=== PATIENT | female | born 1950 | race Caucasian/White ===

== ENCOUNTER → 2018-03-17 | Outpatient (CLI) | payer MEDICAID ==
[~2018-03-17] MED LIST: ASPIRIN 81M81 MG/TA2 PO; COZAAR 25MG25 MG/TAB; FAMVIR 500500 MG/TAB PO; INSULIN R (N100 U/ML SC; LOPRESSOR 550 MG/TAB PO; NORVASC 5MG5 MG/TAB PO; RT ADVAIR 228 DISKUS IH; VENTOLIN0.09 MG IH
== END ==
LOC: COL.RAD 13:03
DX: J40 Bronchitis, not specified as acute or chronic (principal)

== ENCOUNTER 2019-01-11 14:43 | Emergency (ER) | payer MEDICAID ==
[~2019-01-11] VITALS: Ht 160 cm; Wt 52.7 kg
[2019-01-11 14:47] VITALS: TEMP 97.2
[2019-01-11 16:02] LABS: BASO % 0.4 % (0.0-2.0); EOS # 0.3 (0.0-0.7); EOS % 3.3 % (0-4.0); GRAN # 4.7 (1.4-6.5); GRAN % 61.9 % (42.2-75.2); HEMATOCRIT 38.1 % (37.0-47.0); HEMOGLOBIN 12.7 g/dl (12.5-16.0); LYMPH # 2.1 (1.2-3.4); LYMPH % 27.2 % (20.0-51.0); MEAN CELL VOLUME 82 fl (80.0-100.0); MEAN CORPUSCULAR HEMOGLOBIN 27 pg (27.0-31.0); MEAN CORPUSCULAR HGB CONC 33 g/dl (33.0-37.0); MEAN PLATELET VOLUME 11.7 fl (7.4-10.4); MONO # 0.5 (0.1-0.6); MONO % 6.9 % (1.7-9.3); PLATELET COUNT 247 K/mm3 (130-400); RED BLOOD COUNT 4.63 M/mm3 (4.10-5.30); REDCELL DISTRIBUTION WIDTH-CV 13.3 % (11.5-14.5)
[2019-01-11 16:11] LABS: ALANINE AMINOTRANSFERASE 7 U/L (9-52); ALBUMIN 4.5 gm/dL (3.5-5.0); ALKALINE PHOSPHATASE 100 U/L (50-136); ANION GAP 9 mmol/L (7-16); AST,SGOT 21 U/L (15-37); BILIRUBIN,TOTAL 0.7 mg/dL (0.0-1.0); BLOOD UREA NITROGEN 11 mg/dL (7-17); CALCIUM 9.4 mg/dL (8.4-10.2); CARBON DIOXIDE 26 mmol/L (22-30); CHLORIDE 101 mmol/L (98-107); CREATININE, serum 0.53 (0.52-1.25); GLUCOSE 306 mg/dL (74-106); POTASSIUM 3.8 mmol/L (3.4-5.0); SODIUM 136 mmol/L (137-145); TOTAL PROTEIN 8.3 gm/dL (6.4-8.2)
[2019-01-11 16:13] LABS: PH 6 (5-8); URINE APPEARANCE Clear; URINE BACTERIA None Seen /hpf; URINE BILIRUBIN Negative (NEGATIVE); URINE BLOOD Negative (NEGATIVE); URINE COLOR Yellow; URINE GLUCOSE 3+ (NEGATIVE); URINE KETONE Negative (NEGATIVE); URINE LEUKOCYTE ESTERASE Trace (NEGATIVE); URINE NITRATE Negative (NEGATIVE); URINE PROTEIN(semi-quant) 1+ (NEGATIVE); URINE UROBILINOGEN Negative (NEGATIVE); URINE WBC 20-50 /hpf
[2019-01-11 16:19] LABS: COLLECTION METHOD CLEAN CATCH
[2019-01-11 16:27] LABS: TROPONIN-I < 0.012 ng/mL (0.000-0.035)
[2019-01-11] MEDS ORDERED: NORVASC 10MG10 MG PO (16:49)
[2019-01-11] MEDS ORDERED: PRINIVIL20 MG PO (16:49)
[2019-01-11 17:15] VITALS: BP 151/77; PULSE 70
== END 2019-01-11 17:15 | disposition home or self-care (01) ==
LOC: COL.ER 14:43
PROVIDERS: Emergency Medicine
DX: E11.65 Type 2 diabetes mellitus with hyperglycemia (principal); I10 Essential (primary) hypertension; J45.909 Unspecified asthma, uncomplicated; E78.5 Hyperlipidemia, unspecified; Z79.51 Long term (current) use of inhaled steroids; Z79.82 Long term (current) use of aspirin; Z79.4 Long term (current) use of insulin

== ENCOUNTER 2019-01-24 00:17 | Emergency (ER) | payer MEDICAID ==
[~2019-01-24] VITALS: Ht 160 cm; Wt 52.7 kg
[~2019-01-24 00:17] MED LIST changes: +NORVASC 10MG10 MG PO; +PRINIVIL20 MG PO
[2019-01-24 00:20] VITALS: TEMP 97
[2019-01-24 00:57] LABS: BASO # 0.1 (0.0-0.2); BASO % 0.5 % (0.0-2.0); EOS # 0.2 (0.0-0.7); EOS % 1.6 % (0-4.0); GRAN # 8.8 (1.4-6.5); GRAN % 72.9 % (42.2-75.2); HEMATOCRIT 37.1 % (37.0-47.0); LYMPH # 2.1 (1.2-3.4); LYMPH % 17.1 % (20.0-51.0); MEAN CELL VOLUME 84 fl (80.0-100.0); MEAN CORPUSCULAR HEMOGLOBIN 27 pg (27.0-31.0); MEAN CORPUSCULAR HGB CONC 32 g/dl (33.0-37.0); MEAN PLATELET VOLUME 10.7 fl (7.4-10.4); MONO # 0.9 (0.1-0.6); MONO % 7.5 % (1.7-9.3); PLATELET COUNT 323 K/mm3 (130-400); REDCELL DISTRIBUTION WIDTH-CV 13.2 % (11.5-14.5)
[2019-01-24 01:03] LABS: ALBUMIN 4.5 gm/dL (3.5-5.0); BILIRUBIN,TOTAL 0.3 mg/dL (0.0-1.0); CALCIUM 9.9 mg/dL (8.4-10.2); CREATININE, serum 0.65 (0.52-1.25); POTASSIUM 3.2 mmol/L (3.4-5.0); TOTAL PROTEIN 8.4 gm/dL (6.4-8.2)
[2019-01-24 02:31] LABS: COLLECTION METHOD CLEAN CATCH
[2019-01-24 02:39] LABS: MUCOUS Present /lpf; PH 5 (5-8); URINE APPEARANCE Clear; URINE BACTERIA Rare /hpf; URINE BILIRUBIN Negative (NEGATIVE); URINE BLOOD Negative (NEGATIVE); URINE COLOR Yellow; URINE GLUCOSE 3+ (NEGATIVE); URINE KETONE Trace (NEGATIVE); URINE LEUKOCYTE ESTERASE 1+ (NEGATIVE); URINE NITRATE Negative (NEGATIVE); URINE PROTEIN(semi-quant) 2+ (NEGATIVE); URINE RBC 0-2 /hpf; URINE UROBILINOGEN Negative (NEGATIVE)
[2019-01-24] MEDS ORDERED: CEFTIN500 MG PO (02:57)
[2019-01-24 03:10] VITALS: BP 158/74; PULSE 75
== END 2019-01-24 03:29 | disposition home or self-care (01) ==
LOC: COL.ER 00:17
PROVIDERS: Emergency Medicine
DX: E16.2 Hypoglycemia, unspecified (principal); N39.0 Urinary tract infection, site not specified; E10.9 Type 1 diabetes mellitus without complications; J45.909 Unspecified asthma, uncomplicated; I10 Essential (primary) hypertension; Z79.84 Long term (current) use of oral hypoglycemic drugs
CPT/HCPCS: A4216; J0696

== ENCOUNTER 2021-06-25 13:45 | Inpatient (IN) | payer MEDICAID ==
[~2021-06-25] VITALS: Ht 160 cm; Wt 53.6 kg
[~2021-06-25 13:45] MED LIST changes: +CEFTIN500 MG PO
[2021-06-25 14:59] LABS: MEAN CELL VOLUME 83 fl (80.0-100.0); MEAN CORPUSCULAR HEMOGLOBIN 26 pg (27-31); MEAN CORPUSCULAR HGB CONC 32 g/dl (33.0-37.0); MEAN PLATELET VOLUME 10.7 fl (7.4-10.4); PLATELET COUNT 540 K/mm3 (130-400); RED BLOOD COUNT 3.81 M/mm3 (4.10-5.30); REDCELL DISTRIBUTION WIDTH-CV 13.3 % (11.5-14.5)
[2021-06-25 15:00] LABS: HEMATOCRIT 31.6 % (37.0-47.0)
[2021-06-25 15:13] LABS: C-REACTIVE PROTEIN 22.72 mg/dL (0.00-0.50); CALCIUM 9.8 mg/dL (8.4-10.2); CREATININE, serum 1.24 mg/dL (0.57-1.11); POTASSIUM 3.6 mmol/L (3.5-4.5)
[2021-06-25 15:33] LABS: BAND 9 % (0-10); EOSINOPHIL 1 % (0-4); LYMPHOCYTE 15 % (20.0-51.0); PLATELET ESTIMATE INCREASED (NORMAL)
[2021-06-25 15:34] LABS: HYPOCHROMIA 2+; NEUTROPHILS 69 % (42.0-75.2)
[2021-06-25] MEDS ORDERED: JANUVIA 100MG100 MG PO (16:08)
[2021-06-25] MEDS ORDERED: GLUCOPHAGE500 MG/TAB PO (16:09)
[2021-06-25 16:50] VITALS: BP 144/58; PULSE 88; TEMP 98.2
--- NOTE | 2021-06-25 16:50 | NUR ---
PATIENT ADMITED INTO ROOM 343 FROM ER WITH NECROTIC LEFT GREAT TOE. PATIENT IS A KNOWN DIABETIC. BS IN ER WAS IN THE 300'S. UNCLEAR HOW LONG THE LEFT GREAT TOE HAS BEEN BLACK AND NECROTIC. TOE IS BLACK WITH SLOUGHING SKIN AND FOUL SMELL. PATIENT REPORTS ONLY SLIGHT FEELING IN LEFT GREAT TOE AND DENIES PAIN. VSS ON TELE. IV FLUIDS INFUSING INTO RIGHT FORARM IV. HEAD TO TOE ASSESSMENT COMPLETE. ORIENTED TO ROOM. CALL LIGHT IN REACH. AT BEDSIDE.
--- NOTE | 2021-06-25 17:35 | NUR ---
WOUND CULTURE OBTAINED AND SENT TO LAB
[2021-06-25] MEDS ORDERED: TOPROL XL 25MG25 MG PO (19:17)
[2021-06-25] MEDS ORDERED: NOVOLOG MIX 70/33 ML SQ (19:20)
[2021-06-25] MEDS ORDERED: PRAVACHOL 20MG20 MG PO (19:21)
[2021-06-25] MEDS ORDERED: PRIL40 PO (19:22)
[2021-06-25] MEDS ORDERED: RT ADVAIR 228 DISKUS IH (19:22)
[2021-06-25] MEDS ORDERED: FLONASEALLERGY NS (19:23)
[2021-06-25] MEDS ORDERED: VENTOLIN0.09 MG IH (19:24)
--- NOTE | 2021-06-25 20:00 | NUR ---
PT IN BED, IS ALERT AND ORIENTED X4. HAS IVF TO RFA INFUSING WITHOUT REDNESS OR SWELLING. IV ANTIBIOTIC CONNECTED AND INFUSING. PT HAS LITE DRSG TO LEFT GREAT TOE, REDNESS TO TOP OF LT FOOT, FOUL ODOR FROM TOE. PT DENIES PAIN.
[2021-06-25 20:20] VITALS: BP 147/53; PULSE 83; TEMP 98.2
[2021-06-25 23:51] VITALS: BP 170/53; PULSE 85; TEMP 99.1
[2021-06-26] VITALS (12 sets, daily range): BP systolic 125–162; BP diastolic 48–108; PULSE 70–89; TEMP 99–102.6
--- NOTE | 2021-06-26 04:16 | NUR ---
PT HAS FEVER 102.6. [employer] SENIOR INFORMATION SECURITY ARCHITECT NOTIFIED, NEW ORDER FOR TYLENOL GIVEN. MEDICATED WITH 650MG PO NOW. ASSISTED TO BATHROOM, VOIDS AND BACK TO BED.
--- NOTE | 2021-06-26 05:26 | NUR ---
Pt pkkm=759.0 orally.
[2021-06-26 05:59] LABS: BASO # 0.1 K/mm3 (0.0-0.2); BASO % 0.3 % (0.0-2.0); EOS % 0.1 % (0.0-4.0); GRAN # 15.2 K/mm3 (1.4-6.5); GRAN % 83.6 % (42.2-75.2); HEMATOCRIT 27.1 % (37.0-47.0); LYMPH # 1.4 K/mm3 (1.2-3.4); LYMPH % 7.9 % (20.0-51.0); MEAN CELL VOLUME 80 fl (80.0-100.0); MEAN CORPUSCULAR HEMOGLOBIN 26 pg (27-31); MEAN CORPUSCULAR HGB CONC 33 g/dl (33.0-37.0); MEAN PLATELET VOLUME 10.8 fl (7.4-10.4); MONO # 1.4 K/mm3 (0.1-0.6); MONO % 7.4 % (1.7-9.3); PLATELET COUNT 442 K/mm3 (130-400); RED BLOOD COUNT 3.41 M/mm3 (4.10-5.30); REDCELL DISTRIBUTION WIDTH-CV 13.2 % (11.5-14.5)
[2021-06-26 06:25] LABS: CALCIUM 8.7 mg/dL (8.4-10.2); CREATININE, serum 0.81 mg/dL (0.57-1.11); POTASSIUM 3.1 mmol/L (3.5-4.5)
--- NOTE | 2021-06-26 08:00 | NUR ---
PATIENT GOING DOWN FOR MRI. OFF FLOOR
--- NOTE | 2021-06-26 09:00 | NUR ---
PATIENT IS ORIENTED BUT DROWSY THIS AM. RESIDENTIAL MORTGAGE UNDERWRITER REPORTED TEMP OF 100.0 AND TYLENOL WAS GIVEN. ALSO NOTED HYPERTENSION, CALLED [facility] TO RESUME HOME MEDS, B/P MEDS GIVEN WITH SIPS. SEE APR. NPO FOR POSSIBLE SURGERY TODAY. AM BS IS 219 FASTING. PATIENT HAS HX OF DM WITH AN A1C OF 10.6. LEFT GREAT TOE IS NECROTIC WITH FOUL SMELL. SOFT GAUZE DRESSING APPLIED. BLOOD & WOUND CULTURES PENDING. NOTED ELEVATED WBC OF 18.1 WHICH IS DOWN FROM 21.8 ON ADMISSION. PATIENT GETTING IV ABX, INFUSING VIA PUMP INTO RIGHT FORARM IV. NOTED +1 LLE PEDAL PULSE AND +2 RLE. SCD'S TO BLE. PATIENT NOTED WEAK, UNSTEADY GATE WITH AMBULATION. HEAD TO TOE ASSESSMENT COMPLETE. NO OTHER NEEDS AT THIS TIME. CALL LIGHT IN REACH.
--- NOTE | 2021-06-26 09:24 | NUR ---
KRUNAL met with the patient to discuss discharge plan. The patient lives alone in the [facility]. She states that her daughter, Shruthi (ph#[phone]), lives nearby. She reports independence with ADLs and has a cane available. The patient's primary care provider is Ladi Mariscal APRN at [facility] and she receives her medications from [facility]. She states no difficulties paying for her meds. The patient confirms that she only has Medicaid. She states that she does not have Medicare and was told she does not qualify for it. The patient does not have a DPOA-HC, but she was interested in obtaining a form. KRUNAL provided. The patient states that she is not and has five living children: Shruthi Sosa, Sebastian Kessler, Zack Sosa, Kain Yang, and Alma Sosa. KRUNAL informed her how her five children are her legal next of kin. The patient verbalized understanding. She states that she plans on talking to her daughter about the DPOA-HC. The patient has left great toe necrosis. She is to tentatively have surgery today and at a minimum, have a left great toe amputation. KRUNAL discussed plans for after surgery and maybe post-acute rehab. The patient is unsure at this time about any discharge plans or if she will need any services. KRUNAL contacted and reviewed the above with the patient's daughter, Shruthi. Shruthi states that her and her siblings work, so they would not be able to be with the patient 13/09, if needed. She states that they are able to take her to any appointments and they would be interested in home health, if needed. KRUNAL informed Shruthi how Medicaid only pays for nursing home home health services. Shruthi verbalized understanding. SW to continue to follow. *Discharge plan: Undetermined at this time. Will await therapy evals after surgery*
--- NOTE | 2021-06-26 12:30 | NUR ---
[facility] CALLED AND WOULD LIKE TO TAKE PATIENT TO SURGERY AROUND [phone] TODAY. CALLED HOSPITALIST, SEE STAT CLEARANCE ORDERS. PATIENT CALLING HER SON.
[2021-06-26 12:46] LABS: COLLECTION METHOD CLEAN CATCH
[2021-06-26 12:52] LABS: PH 5 (5-8); SQUAMOUS EPITHELIAL 0-2 /hpf (0-10); URINE APPEARANCE Clear (CLEAR/HAZY); URINE BACTERIA None Seen /hpf (NONE SEEN); URINE BILIRUBIN Negative (NEGATIVE); URINE BLOOD 1+ (NEGATIVE); URINE COLOR Yellow (YELLOW); URINE GLUCOSE 1+ (NEGATIVE); URINE KETONE 1+ (NEGATIVE); URINE LEUKOCYTE ESTERASE Negative (NEGATIVE); URINE NITRATE Negative (NEGATIVE); URINE PROTEIN(semi-quant) 2+ (NEGATIVE); URINE RBC 0-2 /hpf (0-2); URINE WBC 0-2 /hpf (0-2)
--- NOTE | 2021-06-26 13:15 | NUR ---
HOSPITALIST CALLED AND PATIENT CLEARED FOR SURGERY. PATIENT GOING DOWN TO OR VIA BED. BLANK CONSENT ON CHART, PATIENT TO CONSULT IN SURGICAL PRE-OP HOLDING. PRE-OP FLUIDS INFUSING INTO RIGHT FORARM IV. SON NOW AT BEDSIDE. PATIENT OFF FLOOR.
--- NOTE | 2021-06-26 14:15 | NUR ---
PATIENT BACK IN ROOM POST OP LEFT GREAT TOE AMPUTATION. DRESSING TO LLE GREAT TOE IS CD&I AND ELEVATED ON PILLOW. SCD'S TO BLE. PATIENT DENIES PAIN OR NAUSEA STATING "I FEEL SO MUCH BETTER". VSS. HEAD TO TOE ASSESSMENT WNL. PATIENT RESTING WITH NO NEEDS. CALL LIGHT IN REACH. BED ALARM ON. FAMILY ON THEIR WAY BACK TO HOSPITAL
--- NOTE | 2021-06-26 19:54 | NUR ---
TX GIVEN VIA MOUTHPIECE, TOLERATED WELL.
--- NOTE | 2021-06-26 20:00 | NUR ---
PT IN BED, IS DROWSY, BED ALARM ON FOR SAFETY. HAS IV TO RFA WITH FLUIDS INFUSING WITHOUT REDNESS OR SWELLING. LEFT FOOT ELEVATED ON PILLOW, DRSG D/I, REPORTS NUMBNESS/TINGLING OF LEFT EXPOSED TOES. WEARING OXYGEN AT 2L/NC. CALL LIGHT WITHIN REACH.
--- NOTE | 2021-06-26 21:01 | NUR ---
PT WITH EMESIS, APPROX 50CC REARDON, MEDICATED WITH ZOFRAN 4MG IVP AT THIS TIME.
--- NOTE | 2021-06-26 23:02 | NUR ---
PT HAD VOIDED IN BASIN AT BEDSIDE, DID NOT REMEMBER HOW TO CALL FOR THE NURSE. LINENS CHANGED. MILD NAUSEA REMAINS.
[2021-06-27 03:39] VITALS: BP 154/59; PULSE 86; TEMP 97.9
--- NOTE | 2021-06-27 04:08 | NUR ---
PT MEDICATED FOR LEFT FOOT DISCOMFORT WITH OXYCODONE 5MG PO. REPORTS NAUSEA WITH MOVEMENT, MEDICATE WITH ZOFRAN AT THIS TIME WELL.
[2021-06-27 05:47] LABS: CALCIUM 8.2 mg/dL (8.4-10.2); CREATININE, serum 0.72 mg/dL (0.57-1.11)
[2021-06-27 05:50] LABS: POTASSIUM 2.5 mmol/L (3.5-4.5)
--- NOTE | 2021-06-27 05:53 | NUR ---
REPORTED POTASSIUM LEVEL 2.5 TO SAVANNAH NICKERSON
--- NOTE | 2021-06-27 06:20 | NUR ---
PT REPORTS GOOD RELIEF OF DISCOMFORT WITH OXYCODONE.
[2021-06-27 06:27] LABS: MEAN CELL VOLUME 79 fl (80.0-100.0); MEAN CORPUSCULAR HGB CONC 33 g/dl (33.0-37.0); PLATELET COUNT 414 K/mm3 (130-400); RED BLOOD COUNT 3.09 M/mm3 (4.10-5.30); REDCELL DISTRIBUTION WIDTH-CV 13.2 % (11.5-14.5)
[2021-06-27 06:46] LABS: HEMATOCRIT 24.5 % (37.0-47.0); HEMOGLOBIN 8.1 g/dl (12.5-16.0); MEAN CORPUSCULAR HEMOGLOBIN 26 pg (27-31)
[2021-06-27 07:11] LABS: BAND 2 % (0-10); LYMPHOCYTE 11 % (20.0-51.0); NEUTROPHILS 82 % (42.0-75.2); PLATELET ESTIMATE INCREASED (NORMAL)
[2021-06-27 08:00] VITALS: BP 146/51; PULSE 78; TEMP 98
--- NOTE | 2021-06-27 08:44 | NUR ---
PATIENT ALERT AND ORIENTED X3. SITTING UP IN BED. POTASSIUM BEING REPLACED THIS MORNING. DRESSING TO LEFT TOE DRY AND INTACT. DRESSING TO STAY IN PLACE UNTIL SHE GOES TO CLINIC. BLOOD SUGARS ACHS. IV FLUIDS RUNNING AT 100/HR.
--- NOTE | 2021-06-27 10:14 | NUR ---
PATIENT HAS DECLINED THERAPY TWICE THIS MORNING AND WOULD LIKE TO WAIT TILL TOMORROW TO DO HER EVALUATION. PT SPOKE TO THIS NURSE ABOUT HOLDING OFF ONE MORE DAY.
[2021-06-27 12:00] VITALS: BP 133/54; PULSE 75; TEMP 97.8
[2021-06-27 15:45] VITALS: BP 119/48; PULSE 73; TEMP 98
[2021-06-27 19:53] VITALS: BP 132/53; PULSE 71; TEMP 97.7
--- NOTE | 2021-06-27 21:12 | NUR ---
PT STATED SHE DID NOT WANT TO TAKE TX AT THIS TIME.
[2021-06-27 23:38] VITALS: BP 150/52; PULSE 75; TEMP 98
[2021-06-28 03:18] VITALS: BP 145/52; PULSE 76; TEMP 98.2
--- NOTE | 2021-06-28 05:18 | NUR ---
ASSUMED CARE OF PATIENT AFTER RECEIVING BEDSIDE REPORT. ASSESSMENT COMPLETED, VSS. NO QUESTIONS OR CONCERNS AT THIS TIME. PIV PLACED RIGHT FA, 2 ATTEMPTS, PATIENT TOLERATED WELL. NO ACUTE EVENTS OVERNIGHT. BEDSIDE REPORT TO BE GIVEN TO ONCOMING SHIFT
[2021-06-28 06:02] LABS: BASO # 0.1 K/mm3 (0.0-0.2); BASO % 0.2 % (0.0-2.0); EOS % 0.2 % (0.0-4.0); GRAN # 17.8 K/mm3 (1.4-6.5); GRAN % 83.1 % (42.2-75.2); LYMPH % 9.5 % (20.0-51.0); MEAN CELL VOLUME 81 fl (80.0-100.0); MEAN CORPUSCULAR HGB CONC 32 g/dl (33.0-37.0); MEAN PLATELET VOLUME 10.4 fl (7.4-10.4); MONO # 1.3 K/mm3 (0.1-0.6); PLATELET COUNT 422 K/mm3 (130-400); RED BLOOD COUNT 3.43 M/mm3 (4.10-5.30); REDCELL DISTRIBUTION WIDTH-CV 13.4 % (11.5-14.5)
[2021-06-28 06:05] LABS: HEMATOCRIT 27.9 % (37.0-47.0); MEAN CORPUSCULAR HEMOGLOBIN 26 pg (27-31)
[2021-06-28 06:36] LABS: CALCIUM 8.5 mg/dL (8.4-10.2); CREATININE, serum 0.7 mg/dL (0.57-1.11)
[2021-06-28 06:38] LABS: POTASSIUM 2.9 mmol/L (3.5-4.5)
[2021-06-28 07:16] VITALS: BP 158/61; PULSE 83; TEMP 97.8
--- NOTE | 2021-06-28 09:01 | NUR ---
PATIENT ALERT AND ORIENTED X4. IV TO RIGHT FOREARM. PATIENT PAIN IS BETTER. ATE BREAKFAST THIS MORNING.
[2021-06-28 11:58] VITALS: BP 138/62; PULSE 80; TEMP 97.6
--- NOTE | 2021-06-28 14:24 | NUR ---
RA SPO2 AT REST IN BED 82%. PLACED ON 1 LPM NC 90%. RN NOTIFIED
[2021-06-28 15:04] VITALS: BP 135/59; PULSE 92; TEMP 98.6
[2021-06-28 20:36] VITALS: BP 125/59; PULSE 79; TEMP 98
--- NOTE | 2021-06-28 20:47 | NUR ---
PT IN BED, ASSISTED TO BATHROOM TO VOID AND HAVE STOOL. NOTED SMALL SOFT LOOSE STOOL, BACK TO BED. REPORTS PAIN TO RT SIDE AND BURNING TO LEFT FOOT. HS MEDS GIVEN INCLUDING OXYCODONE FOR PAIN. INT TO RFA RED AND TENDER TO FLUSH. DC'D AT THIS TIME.
--- NOTE | 2021-06-28 20:55 | NUR ---
NEW INT STARTED TO LFA, #22 INSYTE ON FIRST ATTEMPT.
--- NOTE | 2021-06-28 23:00 | NUR ---
PT POTASSIUM 3.3 AFTER REPLACEMENT TODAY. REORDERED POTASSIUM, FIRST DOSE OF 3 GIVEN AT THIS TIME.
[2021-06-28 23:25] VITALS: BP 141/52; PULSE 79; TEMP 98.4
--- NOTE | 2021-06-29 03:27 | NUR ---
PT REPORTS RT SIDE PAIN. MEDICATED WITH OXYCODONE 5MG PO AND LAST DOSE OF POTASSIUM REPLACEMENT PO.
[2021-06-29 03:31] VITALS: BP 137/56; PULSE 78; TEMP 98.4
[2021-06-29 07:18] LABS: MEAN CELL VOLUME 82 fl (80.0-100.0); MEAN CORPUSCULAR HGB CONC 32 g/dl (33.0-37.0); MEAN PLATELET VOLUME 10.2 fl (7.4-10.4); RED BLOOD COUNT 3.26 M/mm3 (4.10-5.30); REDCELL DISTRIBUTION WIDTH-CV 13.8 % (11.5-14.5)
[2021-06-29 07:23] LABS: HEMATOCRIT 26.6 % (37.0-47.0); HEMOGLOBIN 8.6 g/dl (12.5-16.0); MEAN CORPUSCULAR HEMOGLOBIN 26 pg (27-31)
[2021-06-29 07:24] LABS: PLATELET COUNT 526 K/mm3 (130-400)
[2021-06-29 07:34] LABS: CALCIUM 8.5 mg/dL (8.4-10.2); CREATININE, serum 0.7 mg/dL (0.57-1.11); MAGNESIUM 1.9 mg/dL (1.6-2.6); POTASSIUM 3.8 mmol/L (3.5-4.5)
[2021-06-29 07:51] VITALS: BP 121/98; PULSE 77; TEMP 98.2
[2021-06-29 08:01] LABS: BAND 5 % (0-10); BASOPHIL 1 % (0-2); EOSINOPHIL 1 % (0-4); HYPOCHROMIA 1+; LYMPHOCYTE 10 % (20.0-51.0); PLATELET ESTIMATE INCREASED (NORMAL)
[2021-06-29 08:03] LABS: NEUTROPHILS 77 % (42.0-75.2)
--- NOTE | 2021-06-29 08:49 | NUR ---
Pt doing okay this morning. She gets up to the bathroom with just standby assist and walker. Pt does have some pain complaints, PRN pain medication given. Pt currently eating breakfast. She did refuse insulin due to lower blood sugar. Will continue to monitor. Gave pt walking shoe to assist with walking. Plan to go home with home health
[2021-06-29] MEDS ORDERED: TYLENOL 325MG325 MG PO (08:54)
[2021-06-29] MEDS ORDERED: FLAGYL500 MG PO (08:54)
[2021-06-29] MEDS ORDERED: ASPI325T6 PO (08:55)
[2021-06-29] MEDS ORDERED: ROXICODONE 55 MG/TAB PO (08:55)
--- NOTE | 2021-06-29 10:59 | NUR ---
environmental services worker notified that the patient is ready for discharge. Per patients RN, the patient has been up and independent in room. IPR director notified me that the patient does not qualify due to independence in room. SW met with patient to discuss going home with HH services. Patients daughter, grandson and ex daughter in law in room at this time. Patient verbalizes that she feels comfortable with discharge plan of going home today with HH. Patient is provided the [employer] list of HH agencies and patient chose [facility]. Clinical referral faxed to [facility] and notified of patients discharge today. Patient verbalizes that she does not have a walker at home and family feels as if this is something the patient should have. Discussed both [facility] and [place] [facility] for DME. Family chose [facility] so they could pick the walker up on their way home. Spoke with Stephen at [facility] to notify him that the order was coming and that they will pick it up on their way home. Discharge plan: Home with [facility]. Walker ordered from [facility]
--- NOTE | 2021-06-29 11:12 | NUR ---
Reviewed discharge instructions with pt and several family members present in the room. Multiple family members asking questions. Daughter in law is a FISHING TACKLE REPAIRER. INT removed from left forearm. Discussed new medications as well as home health and follow up appointments.
--- NOTE | 2021-06-29 11:27 | NUR ---
Pt escorted out at this time
--- NOTE | 2021-06-30 11:29 | NUR ---
[employer] was contacted by Ladi at [facility] who advised they cannot accept patient at this time as Medicaid does not cover PT/OT and they do not have nursing coverage at this time. SW contacted patient to discuss outpatient PT/OT and patient is agreeable to this. SW also contacted patient's daughter, Shruthi and provided update. Shruthi is in agreement with plan for outpatient PT/OT. [facility] and scheduled appointment for 07/03 (OT 1430, PT 1530). KRUNAL also faxed referral with orders. SW contacted both patient and patient's daughter to provide appointment date, time, location, and contact information.
== END 2021-06-29 11:31 | disposition home health service (06) | DRG 854 ==
LOC: COL.ER 13:45 → SURG 15:20
PROVIDERS: Emergency Medicine; Internal Medicine; Orthopaedic Surgery Sports Medicine; Physician Assistant; ADMIT Student in an Organized Health Care Education/Training Program
PROC: 0Y6Q0Z0 Detachment at Left 1st Toe, Complete, Open Approach (ICD-10-PCS; principal; 2021-06-26 13:30)
DX: A41.9 Sepsis, unspecified organism (principal); N17.9 Acute kidney failure, unspecified; E87.2 Acidosis; E11.52 Type 2 diabetes mellitus with diabetic peripheral angiopathy with gangrene; I96 Gangrene, not elsewhere classified; M86.9 Osteomyelitis, unspecified; E11.69 Type 2 diabetes mellitus with other specified complication; L03.032 Cellulitis of left toe; J44.9 Chronic obstructive pulmonary disease, unspecified; E83.42 Hypomagnesemia; E87.6 Hypokalemia; K21.9 Gastro-esophageal reflux disease without esophagitis; E11.65 Type 2 diabetes mellitus with hyperglycemia; I10 Essential (primary) hypertension; D75.839 Thrombocytosis, unspecified; D64.9 Anemia, unspecified; E78.5 Hyperlipidemia, unspecified; Z79.4 Long term (current) use of insulin; Z79.82 Long term (current) use of aspirin
CPT/HCPCS: 99222-AI; 99232-AI; 99233-AI; 99239; A9284; A9575; J0690; J1815; J2250; J2405; J2543; J2704; J3010; J3370; J3475; J7120

== ENCOUNTER 2021-07-02 14:54 | Inpatient (IN) | payer MEDICAID ==
[~2021-07-02] VITALS: Ht 160 cm; Wt 53.8 kg
[~2021-07-02 14:54] MED LIST changes: +ASPI325T6 PO; +FLAGYL500 MG PO; +FLONASEALLERGY NS; +GLUCOPHAGE500 MG/TAB PO; +JANUVIA 100MG100 MG PO; +NOVOLOG MIX 70/33 ML SQ; +PRAVACHOL 20MG20 MG PO; +PRIL40 PO; +ROXICODONE 55 MG/TAB PO; +TOPROL XL 25MG25 MG PO; +TYLENOL 325MG325 MG PO
[2021-07-02 15:52] LABS: MEAN CELL VOLUME 84 fl (80.0-100.0); MEAN CORPUSCULAR HGB CONC 32 g/dl (33.0-37.0); MEAN PLATELET VOLUME 9.4 fl (7.4-10.4); PLATELET COUNT 629 K/mm3 (130-400); RED BLOOD COUNT 3.22 M/mm3 (4.10-5.30); REDCELL DISTRIBUTION WIDTH-CV 14.1 % (11.5-14.5)
[2021-07-02 15:54] LABS: HEMOGLOBIN 8.5 g/dl (12.5-16.0); MEAN CORPUSCULAR HEMOGLOBIN 26 pg (27-31)
[2021-07-02 16:11] LABS: ALBUMIN 2.3 gm/dL (3.4-4.8); BILIRUBIN,TOTAL 0.3 mg/dL (0.2-1.2); C-REACTIVE PROTEIN 16.44 mg/dL (0.00-0.50); CALCIUM 8.9 mg/dL (8.4-10.2); CREATININE, serum 0.97 mg/dL (0.57-1.11); POTASSIUM 4.3 mmol/L (3.5-4.5); TOTAL PROTEIN 8.2 gm/dL (6.2-8.1)
[2021-07-02 16:24] LABS: BAND 8 % (0-10); EOSINOPHIL 1 % (0-4); LYMPHOCYTE 5 % (20.0-51.0); METAMYELOCYTE 1 % (0-0); NEUTROPHILS 76 % (42.0-75.2)
[2021-07-02 16:25] LABS: HYPOCHROMIA 2+; PLATELET ESTIMATE INCREASED (NORMAL)
[2021-07-02 17:15] VITALS: BP 130/57; PULSE 83; TEMP 99.1
[2021-07-02 19:29] VITALS: BP 123/59; PULSE 80; TEMP 98.9
--- NOTE | 2021-07-02 22:18 | NUR ---
Received report from day shift. Patient here for fever, malaise and left below the knee amputation. VSS. Consent signed. Assessment performed. PM meds administered. Patient reports pain 5/10 but denies need for medication. Patient instructed on NPO midnight status. Call light within reach.
[2021-07-02 23:38] VITALS: BP 119/56; PULSE 72; TEMP 98.7
[2021-07-03] VITALS (11 sets, daily range): BP systolic 128–141; BP diastolic 53–84; PULSE 73–95; TEMP 97.8–99.4
[2021-07-03 07:05] LABS: HEMATOCRIT 26.2 % (37.0-47.0); HEMOGLOBIN 8.2 g/dl (12.5-16.0); MEAN CELL VOLUME 83 fl (80.0-100.0); MEAN CORPUSCULAR HEMOGLOBIN 26 pg (27-31); MEAN CORPUSCULAR HGB CONC 31 g/dl (33.0-37.0); MEAN PLATELET VOLUME 10.1 fl (7.4-10.4); PLATELET COUNT 531 K/mm3 (130-400); RED BLOOD COUNT 3.14 M/mm3 (4.10-5.30); REDCELL DISTRIBUTION WIDTH-CV 14.4 % (11.5-14.5)
[2021-07-03 07:10] LABS: CALCIUM 8.5 mg/dL (8.4-10.2); CREATININE, serum 0.82 mg/dL (0.57-1.11); MAGNESIUM 1.9 mg/dL (1.6-2.6); POTASSIUM 4.2 mmol/L (3.5-4.5)
[2021-07-03 07:21] LABS: EOSINOPHIL 2 % (0-4); LYMPHOCYTE 16 % (20.0-51.0); NEUTROPHILS 72 % (42.0-75.2)
[2021-07-03 07:22] LABS: HYPOCHROMIA 1+; PLATELET ESTIMATE INCREASED (NORMAL)
--- NOTE | 2021-07-03 09:32 | NUR ---
Initial visit; Patient, her daughter and thanked Roving Frame Tender for looking in on her, offering prayer and God's blessings. Family appeard relieved and hopeful Bailey was about to receive help for her foot which is severely damaged.
--- NOTE | 2021-07-03 10:40 | NUR ---
Resource Efficiency Manager met with patient, patient's daughter Shruthi, and patient's life partner, Shannon (ph#[phone]) to discuss discharge planning. Patient lives alone in [place] at the [facility] and remarked that Shannon lives in the apartment next door to her. Patient uses [facility] for medications and sees [facility] for primary care. Patient is a readmit and was here 06/25/21-06/29/21. Patient to have BKA today. Patient was discharged with HH orders, however [facility] was unable to accept referral for therapy or nursing. Patient states she went to her appointment at [facility] and was sent to the ED from there. Patient and family are frustrated with lack of follow up from previous hospital stay. SW inquired about Medicare coverage as patient only has Medicaid. Patient and family are unsure why patient would not qualify for Medicare. KRUNAL Khan consulted Financial Counseling. Patient is interested in IPR and referral was given to Margaux, IPR Director. SW also discussed [facility] as another option and patient's LP stated he would prefer IPR. KRUNAL discussed Advance Directives with patient who would like to designate her daughter, Shruthi as DPOA-HC. Patient verbalized understanding of DPOA-HC and stated she wants Shannon to be designated as alternate. KRUNAL assisted patient in completing the form then KRUNAL and KRUNAL Khan signed as witnesses. KRUNAL provided original and copies to patient, then placed copy in patient's chart. KRUNAL contacted [facility] and faxed referral to inquire if they would accept Medicaid for HH nursing as there are limited HH options for patients with only Medicaid. KRUNAL also left a message for Cyndee with [facility]. Discharge Plan: IPR Screen. Referral also given to [facility] and [facility].
--- NOTE | 2021-07-03 10:58 | NUR ---
PT TO SURGERY AT THIS TIME.
--- NOTE | 2021-07-03 11:01 | NUR ---
PT TO HAVE BKA OF LLE. CONSENT ON CHART. PT TO SURGERY PER BED WITH
--- NOTE | 2021-07-03 13:55 | NUR ---
PT TO ROOM 342 PER BED WITH REPORT FROM WIL ROLAND PACU @[id number]. PT IS A/O X3 LUNGS CTA, BOWEL SOUNDS PRESENT. OCCLUSIVE DRESSING CDI IN KNEE IMMOBILIZER TO LEFT LE OF BKA.
[2021-07-04] VITALS: BP 110/66; PULSE 84; TEMP 99.2
--- NOTE | 2021-07-04 03:30 | NUR ---
PT had not voided since surgery, bladder scan done showing 640 cc, helped pt use bedpan, voided 300cc.
[2021-07-04 04:00] VITALS: BP 149/61; PULSE 85; TEMP 99.3
[2021-07-04 06:27] LABS: MEAN CELL VOLUME 81 fl (80.0-100.0); MEAN CORPUSCULAR HGB CONC 32 g/dl (33.0-37.0); MEAN PLATELET VOLUME 9.8 fl (7.4-10.4); PLATELET COUNT 539 K/mm3 (130-400); RED BLOOD COUNT 2.74 M/mm3 (4.10-5.30); REDCELL DISTRIBUTION WIDTH-CV 14.6 % (11.5-14.5)
[2021-07-04 06:28] LABS: HEMOGLOBIN 7.1 g/dl (12.5-16.0); MEAN CORPUSCULAR HEMOGLOBIN 26 pg (27-31)
[2021-07-04 06:29] LABS: HEMATOCRIT 22.2 % (37.0-47.0)
--- NOTE | 2021-07-04 07:09 | NUR ---
pt voided several more times using bedpan,IVF infusing per PIV @75cc/hr until po intake improves. no N/V but has reported increased pain throughout this shift, see emar for meds given. left leg elevated on 2 pillows, pt wanting to try ice pack to surgical site this am. temp 99.3 otherwise VSS, received SSI @ HS.
[2021-07-04 07:17] LABS: CALCIUM 8.1 mg/dL (8.4-10.2); CREATININE, serum 0.74 mg/dL (0.57-1.11); POTASSIUM 3.9 mmol/L (3.5-4.5)
[2021-07-04 07:38] LABS: BAND 8 % (0-10); LYMPHOCYTE 5 % (20.0-51.0); NEUTROPHILS 77 % (42.0-75.2); PLATELET ESTIMATE INCREASED (NORMAL)
[2021-07-04 07:45] VITALS: BP 165/68; PULSE 82; TEMP 98.5
--- NOTE | 2021-07-04 11:00 | NUR ---
PT HAS BEEN UP OUT OF BED WITH 2 ASSIST, GAIT BELT ET A WALKER @ THIS TIME. PT TOLERATED WELL WITH QUEING. PT WAS TRANSFERRED FROM BED TO BEDSIDE COMMODE ET THEN TO THE RECLINER CHAIR. LEFT BKA STUMP ELEVATED ON PILLOWS.
--- NOTE | 2021-07-04 11:27 | NUR ---
PT HAS BEEN TAKEN TO SURGERY. PRE-OP FLUIDS INFUSING INTO PERIPHERAL IV. DONNELLY CATHETER DRAINING DEPENDENTLY. PT HAS BEEN GIVEN A BED BATH, GOWN HAS BEEN CHANGED ET CATHETER CARE COMPLETED.
[2021-07-04 12:02] VITALS: BP 134/56; PULSE 80; TEMP 98.5
[2021-07-04 16:08] VITALS: BP 148/59; PULSE 81; TEMP 98.7
[2021-07-04 20:00] VITALS: BP 151/71; PULSE 85; TEMP 98.7
[2021-07-05 00:14] VITALS: BP 144/65; PULSE 77; TEMP 98.5
[2021-07-05 04:00] VITALS: BP 161/61; PULSE 81; TEMP 98.1
--- NOTE | 2021-07-05 06:03 | NUR ---
pt on RA, pain controlled with po meds, up to BSC with assist of 2, SSI given @HS, pt and spouse concerned about high BGMs yesterday, spouse helped pick out better options on menu for meals today. educated on how surgery/stress can affect diabetes as well as food, LL elevated on pillows, dressing to stump CDI.
[2021-07-05 06:18] LABS: MEAN CELL VOLUME 83 fl (80.0-100.0); MEAN CORPUSCULAR HGB CONC 32 g/dl (33.0-37.0); MEAN PLATELET VOLUME 9.8 fl (7.4-10.4); PLATELET COUNT 603 K/mm3 (130-400); REDCELL DISTRIBUTION WIDTH-CV 14.5 % (11.5-14.5)
[2021-07-05 06:31] LABS: HEMATOCRIT 23.2 % (37.0-47.0); HEMOGLOBIN 7.3 g/dl (12.5-16.0); MEAN CORPUSCULAR HEMOGLOBIN 26 pg (27-31)
[2021-07-05 06:33] LABS: CALCIUM 8.5 mg/dL (8.4-10.2); CREATININE, serum 0.64 mg/dL (0.57-1.11); POTASSIUM 3.4 mmol/L (3.5-4.5)
[2021-07-05 07:16] LABS: BAND 1 % (0-10); HYPOCHROMIA 1+; LYMPHOCYTE 10 % (20.0-51.0); NEUTROPHILS 79 % (42.0-75.2); PLATELET ESTIMATE INCREASED (NORMAL)
[2021-07-05 07:51] VITALS: BP 167/63; PULSE 82; TEMP 98.2
[2021-07-05 12:00] VITALS: BP 155/67; PULSE 84; TEMP 97.9
[2021-07-05 15:59] VITALS: BP 144/63; PULSE 80; TEMP 98.4
--- NOTE | 2021-07-05 17:41 | NUR ---
PT IS IN BED, EATING DINNER WITH HOB ELEVATED, SPOUSE IS @ BEDSIDE. PT WAS UP IN THE CHAIR FOR LUNCH ET A FEW HOURS BEFORE. PT WAS ABLE TO SLEEP FOR AWHILE AFTER DINNER. PT IS MORE TALKATIVE ET ANIMATED TODAY, STATES THAT SHE IS HAVING LESS PAIN, IS INTERMITTENT IN LEFT BKA SITE. PT HAS BEEN UP TO BSC WITH 1 ASSIST, GAIT BELT ET WALKER NUMEROUS TIMES TO URINATE. RESPIRATIONS REMAIN UNLABORED ON RA. DRESSING, BRACE ET KENNY WRAP TO LEFT STUMP CDI. PT DENIES NEEDS. CALL LIGHT WITHIN REACH.
[2021-07-05 20:09] VITALS: BP 147/57; PULSE 84; TEMP 98.1
[2021-07-06] VITALS (11 sets, daily range): BP systolic 130–169; BP diastolic 52–78; PULSE 75–88; TEMP 98–99.1
[2021-07-06 06:40] LABS: MEAN CELL VOLUME 83 fl (80.0-100.0); MEAN CORPUSCULAR HGB CONC 31 g/dl (33.0-37.0); MEAN PLATELET VOLUME 9.6 fl (7.4-10.4); PLATELET COUNT 627 K/mm3 (130-400); RED BLOOD COUNT 2.65 M/mm3 (4.10-5.30); REDCELL DISTRIBUTION WIDTH-CV 14.7 % (11.5-14.5)
[2021-07-06 06:52] LABS: HEMATOCRIT 22.1 % (37.0-47.0); MEAN CORPUSCULAR HEMOGLOBIN 26 pg (27-31)
[2021-07-06 06:53] LABS: HEMOGLOBIN 6.9 g/dl (12.5-16.0)
[2021-07-06 06:57] LABS: CALCIUM 8.6 mg/dL (8.4-10.2); CREATININE, serum 0.75 mg/dL (0.57-1.11); POTASSIUM 3.4 mmol/L (3.5-4.5)
[2021-07-06 07:41] LABS: BAND 3 % (0-10); EOSINOPHIL 1 % (0-4); LYMPHOCYTE 10 % (20.0-51.0); METAMYELOCYTE 1 % (0-0); NEUTROPHILS 82 % (42.0-75.2)
[2021-07-06 07:42] LABS: HYPOCHROMIA 1+; PLATELET ESTIMATE INCREASED (NORMAL)
[2021-07-06 09:44] LABS: RETIC # 0.09 M/mm3 (0.02-0.16); RETIC % 3.2 % (0.5-3.52)
--- NOTE | 2021-07-06 12:55 | NUR ---
IPR still following patient. Cannot accept today as the patients hgb low and needing a unit of blood.
[2021-07-06 17:20] LABS: HEMATOCRIT 25.6 % (37.0-47.0); HEMOGLOBIN 8.4 g/dl (12.5-16.0)
[2021-07-07 00:08] VITALS: BP 157/63; PULSE 80; TEMP 97.8
[2021-07-07 03:39] VITALS: BP 169/70; PULSE 76; TEMP 98.3
--- NOTE | 2021-07-07 05:17 | NUR ---
Pt had an uneventful evening. Took oral medication without difficulty. Minimal compaints of pain were expressed. Pt able to ambulate/hop to bedside commode with 1Xassist by the PCT. Pt has had no other complaints at this time, all needs met. Call light within reach.
[2021-07-07 06:30] LABS: BASO # 0.1 K/mm3 (0.0-0.2); BASO % 0.5 % (0.0-2.0); EOS # 0.2 K/mm3 (0.0-0.7); EOS % 1.6 % (0.0-4.0); GRAN # 9.1 K/mm3 (1.4-6.5); GRAN % 71.1 % (42.2-75.2); LYMPH # 2.3 K/mm3 (1.2-3.4); LYMPH % 18.1 % (20.0-51.0); MEAN CELL VOLUME 83 fl (80.0-100.0); MEAN CORPUSCULAR HGB CONC 32 g/dl (33.0-37.0); MEAN PLATELET VOLUME 9.2 fl (7.4-10.4); MONO % 7.7 % (1.7-9.3); PLATELET COUNT 666 K/mm3 (130-400); RED BLOOD COUNT 3.32 M/mm3 (4.10-5.30); REDCELL DISTRIBUTION WIDTH-CV 14.8 % (11.5-14.5)
[2021-07-07 06:33] LABS: CALCIUM 9.1 mg/dL (8.4-10.2); CREATININE, serum 0.67 mg/dL (0.57-1.11); POTASSIUM 3.9 mmol/L (3.5-4.5)
[2021-07-07 06:36] LABS: HEMATOCRIT 27.5 % (37.0-47.0); HEMOGLOBIN 8.9 g/dl (12.5-16.0); MEAN CORPUSCULAR HEMOGLOBIN 27 pg (27-31)
[2021-07-07 07:35] VITALS: BP 170/77; PULSE 83; TEMP 98.1
--- NOTE | 2021-07-07 09:04 | NUR ---
PATIENT ALERT AND ORIENTED X3. PRN ROXICODONE GIVEN FOR PAIN. IV TO LEFT FOREARM. NO NEW CONCERNS. PATIENT ON ACHS BLOOD SUGARS.
[2021-07-07 12:00] VITALS: BP 174/70; PULSE 87; TEMP 98.5
[2021-07-07] MEDS ORDERED: NOVOLOG 100U100 U/M1 SQ ×2 (14:57→15:07)
[2021-07-07] MEDS ORDERED: LEVEMIR FLEX100 U/ML SQ (14:57)
== END 2021-07-07 15:32 | DRG 240 ==
LOC: COL.ER 14:54 → SURG 15:48
PROVIDERS: Emergency Medicine; Orthopaedic Surgery Sports Medicine; Physician Assistant; Student in an Organized Health Care Education/Training Program; ADMIT Internal Medicine
PROC: 0Y6J0Z3 Detachment at Left Lower Leg, Low, Open Approach (ICD-10-PCS; principal; 2021-07-03 12:00)
DX: E11.52 Type 2 diabetes mellitus with diabetic peripheral angiopathy with gangrene (principal); I96 Gangrene, not elsewhere classified; L03.116 Cellulitis of left lower limb; I10 Essential (primary) hypertension; J44.9 Chronic obstructive pulmonary disease, unspecified; K21.9 Gastro-esophageal reflux disease without esophagitis; E87.6 Hypokalemia; D64.9 Anemia, unspecified; D75.839 Thrombocytosis, unspecified; E78.5 Hyperlipidemia, unspecified; Z79.02 Long term (current) use of antithrombotics/antiplatelets; Z79.4 Long term (current) use of insulin; Z79.891 Long term (current) use of opiate analgesic; Z79.82 Long term (current) use of aspirin; Z20.822 Contact with and (suspected) exposure to COVID-19; Z23 Encounter for immunization
CPT/HCPCS: 99223-AI; 99232-AI; 99233-AI; A9284; J0690; J1170; J1815; J2250; J2543; J2704; J2795; J3010; J3370; J7030; J7050; L1830; P9016

== ENCOUNTER 2021-07-07 15:03 | Inpatient (IN) | payer MEDICAID ==
[~2021-07-07] VITALS: Ht 162.6 cm; Wt 49.8 kg
[~2021-07-07 15:03] MED LIST changes: +LEVEMIR FLEX100 U/ML SQ; +NOVOLOG 100U100 U/M1 SQ
[2021-07-07] MEDS ORDERED: NOVOLOG 100U100 U/M1 SQ (15:07)
[2021-07-07 15:57] VITALS: BP 149/75; PULSE 81; TEMP 98.5
--- NOTE | 2021-07-07 18:18 | NUR ---
PATIENT ADMITTED TO INPATIENT REHAB THIS AFTERNOON. WORKED WITH THERAPY THIS MORNING. WILL START THERAPIES TOMORROW MORNING.
--- NOTE | 2021-07-08 03:26 | NUR ---
Pt transfered to [facility] 07/07/21. Pt has had an uneventful shift and has been resting quietly in bed thus far. Pt has no complaints of pain/discomfort. Tolerating PO intake well. All other needs met at this time, call light within reach.
[2021-07-08 05:12] VITALS: BP 158/76; PULSE 80; TEMP 98.2
--- NOTE | 2021-07-08 07:03 | NUR ---
Shift report received from rn night RN. Pt. awake and resting supine in bed. She denies pain or discomfort at this time. Call light is within her reach
--- NOTE | 2021-07-08 09:24 | NUR ---
Pt. assisted to bathroom using SBA, gait belt, walker. She denies pain or discomfort at this time. Voided without pain or difficulty. is at bedside. Pt. assisted back to bed. Left stump elevated on pillow. Call light is within her reach
--- NOTE | 2021-07-08 13:33 | NUR ---
Pt resting in recliner with BLE elevated on footrest. She denies pain or discomfort at this time. OT in room to escort pt to PT room
[2021-07-08 16:42] VITALS: BP 152/63; PULSE 91; TEMP 98.3
--- NOTE | 2021-07-08 20:00 | NUR ---
PT reports having diarrhea today, asking for immodium, called Amalia Celis APRN, wants stool specimen for GI panel collected before she'll order immodium, stool specimen collected and sent to lab @193
--- NOTE | 2021-07-09 06:04 | NUR ---
no further diarrhea reported during the noc, pt requested oxycodone x1 @HS, slept well.
[2021-07-09 06:37] VITALS: BP 149/65; PULSE 77; TEMP 97.9
--- NOTE | 2021-07-09 07:09 | NUR ---
Shift report received from weight shifter RN. Pt. awake and talking to her sister on the phone. Pt. denies pain or discomfort at this time. Left knee immobilizer is on. Left LE elevated on pillow. Call light is within her reach
--- NOTE | 2021-07-09 09:48 | NUR ---
Called [facility] to obtain incision/dressing change orders. Msg left for nurse De León. Per antique collector, she will fax orders or will call IPR nurse phone. IPR fax # provided to [facility]
--- NOTE | 2021-07-09 10:56 | NUR ---
Callback received from [facility]. Leave dressing in place for now unless saturated. Plan to remove haydee on IPR unit when they see her 2 weeks post-op
--- NOTE | 2021-07-09 11:46 | NUR ---
Blood sugar noted to be 64. Pt. is asymptomatic of hypoglycemia. Pt. given 4 oz Regular Pepsi. Kitchen staff on unit to deliver lunch
--- NOTE | 2021-07-09 15:40 | NUR ---
Pt lying supine in bed. Significant other at bedside. Left stump elevated on pillow. HOB elevated approx 30 degrees. Pt. denies pain or discomfort. Denies further needs. Call light is within her reach
--- NOTE | 2021-07-09 15:45 | NUR ---
SW met with patient to complete intake. Patient's life partner, Shannon ([phone]) present at bedside. Patient currently lives at the [facility] here in [place]. She lives alone but Shannon lives next door. Patient has been seeing [facility] for primary care needs. She gets her medications from [facility] with no cost difficulty. Patient did complete a DPOA-HC prior to her surgery listing her daughter Shruthi as her primary agent and Shannon as her secondary agent. Patient verbalized her excitement with how well she has been doing since being in [facility]. Patient also expresses her desire to keep pushing herself to get stronger stating " i don't want my children to have to worry about me" and that she is happy that she has a doctor that is working on getting her insulin figured out. Patient is educated on our diabetes education program and that we would work on a referral for her but that it would have to come from her PCP. Shannon also expressed a desire for a referral for himself as he is also a diabetic and acknowledged a lack of understanding. No other needs at this time.
[2021-07-09 17:08] VITALS: BP 155/78; PULSE 88; TEMP 99.3
--- NOTE | 2021-07-09 20:47 | NUR ---
GAVE TYLENOL 650MG PO FOR LT STUMP PAIN. TOO EARLY FOR STRONGER MED. PAIN LEVEL 4/10.
--- NOTE | 2021-07-09 20:50 | NUR ---
PT TALKING ON PHONE. A&O X4. NO DISTRESS. CALL LIGHT IN REACH. BED ALARM SET
[2021-07-10 05:40] VITALS: BP 150/63; PULSE 75; TEMP 98
--- NOTE | 2021-07-10 05:57 | NUR ---
ASSISTED PT TO BR WITH WALKER. ABLE TO MANAGE TOILETING TASKS PER SELF. NO OTHER NEEDS NOTED.
--- NOTE | 2021-07-10 06:35 | NUR ---
shift report received from ASUNCION Boyd
--- NOTE | 2021-07-10 07:45 | NUR ---
resting in bed aftre having had breakfast, full assessment completed, see interventions for further info
--- NOTE | 2021-07-10 08:18 | NUR ---
physical therapy in to work with patient
--- NOTE | 2021-07-10 13:02 | NUR ---
physical therapy in to work with patient
--- NOTE | 2021-07-10 13:20 | NUR ---
Admission QIM scores were reviewed by the team. Code of 2 chosen for toilet hygiene was determined by team discussion to be the most usual performance for this patient during the assessment period. Code of 3 chosen for toileting transfers was determined by team discussion to be the most usual performance for this patient during the assessment period. Code of 4 chosen for sit to lying was determined by team discussion to be the most usual performance before interventions for this patient during the assessment period. Code of 4 chosen for lying to sitting on side of bed was determined by team discussion to be the most usual performance for this patient during the assessment period. Code of 3 for sit to stand was determined by team discussion to be the most usual performance for this patient during the assessment period. Code of 3 for chair/bed to chair transfers was determined by team discussion to be the most usual performance for this patient during the assessment period.--Margaux Strickland, PD
--- NOTE | 2021-07-10 13:32 | NUR ---
back to room from therapy
--- NOTE | 2021-07-10 15:15 | NUR ---
remains resting in bed visiting with
[2021-07-10 17:56] VITALS: BP 135/62; PULSE 84; TEMP 97.6
--- NOTE | 2021-07-10 18:16 | NUR ---
shift report given to ASUNCION Bond
--- NOTE | 2021-07-10 19:10 | NUR ---
RECEIVED CHANGE OF SHIFT REPORT FROM DAY SHIFT RN. PATIENT RESTING IN BED WITH SPOUSE AT BEDSIDE. REQUESTED AND GIVEN TYLENOL FOR DISCOMFORT AT THIS TIME.
--- NOTE | 2021-07-11 03:20 | NUR ---
SLEEPING, DOES NOT WAKE WHEN DOOR TO ROOM IS OPENED BY NURSING ON ROUNDS. BREATHING NONLABORED AND EVEN. BED ALARM ON WITH CALL LIGHT WITHIN REACH.
[2021-07-11 05:41] VITALS: BP 145/68; PULSE 77; TEMP 98.6
--- NOTE | 2021-07-11 07:16 | NUR ---
CHANGE OF SHIFT REPORT GIVEN TO DAY SHIFT LOPEZ ROLAND.
--- NOTE | 2021-07-11 09:40 | NUR ---
PT ALERT AND ORIENTED IN ROOM. PT REPORTING PAIN IN LEFT BKA TOWARDS END OF STUMP, NOT RADIATING UPWARDS THROUGH LEG. DENIES USE OF NARCOTIC MEDICATION D/T DROWSINESS. ASSESSMENT COMPLETED TO BEST OF ABILITY, AM MEDICATION PASS COMPLETED. NO FURTHER NEEDS EXPRESSED AT THIS TIME.
--- NOTE | 2021-07-11 16:13 | NUR ---
NOT FORMALLY TRAINED TO FILL OUT QUALITY MEASURE CODES.
--- NOTE | 2021-07-11 16:52 | NUR ---
PT CONTINUING ON PLAN OF CARE. PT ABLE TO EXPRESS NEEDS, NO SIGNIFICANT CHANGE NOTED IN PT STATUS THIS SHIFT. PT ABLE TO AMBULATE TO BATHROOM, TOLERATED WELL. SO IN ROOM VISITING. CALL LIGHT WITHIN REACH.
[2021-07-11 17:48] VITALS: BP 154/62; PULSE 83; TEMP 98.1
--- NOTE | 2021-07-11 18:41 | NUR ---
RECEIVED CHANGE OF SHIFT REPORT FROM DAY SHIFT RN.
--- NOTE | 2021-07-12 01:30 | NUR ---
PATIENT SLEEPS, DOES NOT WAKE WHEN NURSING ENTER ROOM ON ROUNDS. BREATHING EVEN AND NONLABORED. BED ALARM ON, CALL LIGHT WITHIN REACH.
[2021-07-12 05:53] VITALS: BP 147/73; PULSE 77; TEMP 97.8
--- NOTE | 2021-07-12 07:17 | NUR ---
CHANGE OF SHIFT REPORT GIVEN TO DAY SHIFT RNFRANCOIS.
--- NOTE | 2021-07-12 10:23 | NUR ---
Received report from customer acquisition manager. Patient resting in bed, alert and oriented x4. VSS. Stump elevated on pillow. Patient reports mild pain. Denies need for pain medication. Assessment performed. AM meds administered. Assisted with oral hygiene. Patient denies any further needs. Call light near.
[2021-07-12 17:35] VITALS: BP 133/61; PULSE 74; TEMP 98.8
--- NOTE | 2021-07-12 18:37 | NUR ---
RECEIVED CHANGE OF SHIFT REPORT FROM DAY SHIFT RN.
--- NOTE | 2021-07-12 19:47 | NUR ---
PATIENT'S SIGNIFICANT OTHER REQUESTS SPEAKING WITH SENIOR [employer]TO[employer] LABORATORY DIRECTOR/DIETITIAN FOR DIABETIC DIET RECOMMENDATIONS FOR HOME USE.
[2021-07-13 06:05] VITALS: BP 112/68; PULSE 63; TEMP 98.5
[2021-07-13 06:43] LABS: BASO # 0.1 K/mm3 (0.0-0.2); EOS # 0.2 K/mm3 (0.0-0.7); EOS % 3.3 % (0.0-4.0); GRAN # 3.6 K/mm3 (1.4-6.5); GRAN % 59.5 % (42.2-75.2); LYMPH # 1.7 K/mm3 (1.2-3.4); LYMPH % 27.5 % (20.0-51.0); MEAN CELL VOLUME 84 fl (80.0-100.0); MEAN CORPUSCULAR HGB CONC 31 g/dl (33.0-37.0); MEAN PLATELET VOLUME 9.2 fl (7.4-10.4); MONO # 0.5 K/mm3 (0.1-0.6); MONO % 8.4 % (1.7-9.3); PLATELET COUNT 598 K/mm3 (130-400); RED BLOOD COUNT 3.47 M/mm3 (4.10-5.30); REDCELL DISTRIBUTION WIDTH-CV 15.4 % (11.5-14.5)
[2021-07-13 06:47] LABS: HEMATOCRIT 29.1 % (37.0-47.0); HEMOGLOBIN 9.1 g/dl (12.5-16.0); MEAN CORPUSCULAR HEMOGLOBIN 26 pg (27-31)
[2021-07-13 07:00] LABS: CALCIUM 9.6 mg/dL (8.4-10.2); CREATININE, serum 0.81 mg/dL (0.57-1.11); POTASSIUM 4.8 mmol/L (3.5-4.5)
--- NOTE | 2021-07-13 07:03 | NUR ---
Shift report received from shift supervisor melting RN. Pt. resting supine in bed. Call light is within her reach
--- NOTE | 2021-07-13 07:06 | NUR ---
CHANGE OF SHIFT REPORT GIVEN TO DAY SHIFT RNSAUL.
--- NOTE | 2021-07-13 12:55 | NUR ---
Pt. resting in bed. Left stump elevated on pillow. No drainage to surgical dressing. Knee immobilizer is on. Pt. denies further needs at this time. Call light is within her reach
--- NOTE | 2021-07-13 14:40 | NUR ---
Mold Filler Plastic Dolls checked in with patient and her partner, Shannon who is at bedside. Patient had no questions or concerns at this time. KRUNAL scheduled family meeting for Tuesday at 1000 and Shannon advised he would be in attendance. KRUNAL contacted Shruthi who will attend by phone. KRUNAL to order wheelchair for patient prior to discharge.
[2021-07-13 17:12] VITALS: BP 133/57; PULSE 85; TEMP 98.2
[2021-07-14 05:43] VITALS: BP 114/72; PULSE 73; TEMP 98.4
--- NOTE | 2021-07-14 08:00 | NUR ---
Patient sitting up in bed, at the bedside. A&Ox4. VSS. Left stump CDI, brace on leg. Denies pain and discomfort. Call light within reach. Bed alarm on
[2021-07-14 16:48] VITALS: BP 141/72; PULSE 81; TEMP 98
--- NOTE | 2021-07-14 17:19 | NUR ---
Patient sitting up in bed eating dinner, at the bedside, A&Ox4. VSS. Left leg in brace. Left stump CDI, elevated on pillow. Patient worked with therapy and tolerated well. Pain medication given when requested. Patient independent with feeds and repositioning in bed. Call light within reach
--- NOTE | 2021-07-14 20:05 | NUR ---
TX GIVEN VIA MOUTHPIECE, TOLERATED WELL.
--- NOTE | 2021-07-14 20:42 | NUR ---
MEDICATED WITH HS MEDS INCLUDING OXYCODONE FOR LEFT STUMP PAIN. HAS KNEE IMMOBILIZER ON LEFT STUMP AND ELEVATED ON PILLOW. USING WALKER WITH ONE ASSIST FOR MOBILITY. IS ALERT AND ORIENTED X4.
[2021-07-15 06:00] VITALS: BP 146/74; PULSE 73; TEMP 98
--- NOTE | 2021-07-15 06:46 | NUR ---
Shift report received from software quality specialist RN. Pt. sitting up in bed. Requesting pain medication. Denies further needs. Call light is within her reach
--- NOTE | 2021-07-15 09:09 | NUR ---
Pt. ambulated on stairs with OT this morning and had a near fall. Pt. and OT report that pt. bumped the bottom of the left stump on the ground while wearing her immobilizer. Pt. has her pant leg tied in a knot at the end of stump. Pt. reports pain along bottom edge of stump that radiates up to her knee. Dr. Jama notified and in to assess. Dressing was not removed per [facility] orders. Will monitor for any drainage. Ice applied. PRN pain medication given. Pt denies further needs at this time. Significant other at the bedside to visit. Call light is within her reach
--- NOTE | 2021-07-15 10:47 | NUR ---
Pt resting supine in bed. Significant other at the bedside. She reports her left LE pain is improving. LLE is elevated on a pillow. She denies further needs at this time. Call light is within her reach
--- NOTE | 2021-07-15 11:10 | NUR ---
Pt. reporting LLE pain at 10/31 to PT. Per chikis Manning to give Roxicodone 5mg x1 now. Medication given as ordered.
--- NOTE | 2021-07-15 15:41 | NUR ---
Senior Account Representative participated in family meeting which included patient's partner Shannon, son Louie, IPR Director, [facility] Physician, and PT/OT. Patient's daughter, Shruthi participated by phone. Patient's progress was reviewed along with discharge recommendations. Patient is agreeable to Tuesday discharge with Home Health nursing and outpatient PT. SW followed up with patient to review discharge recommendations and plan in more detail. Patient is agreeable to have wheelechair and walker ordered through [facility]. Patient is also agreeable to [facility] for nursing and would like outpatient PT set up at [facility]. SW obtained signature on order form for wheelchair and walker. KRUNAL will follow up tomorrow with [facility].
[2021-07-15 17:44] VITALS: BP 138/65; PULSE 80; TEMP 98.7
--- NOTE | 2021-07-15 19:13 | NUR ---
RECEIVED CHANGE OF SHIFT REPORT FROM DAY SHIFT RN.
[2021-07-16 06:06] VITALS: BP 137/53; PULSE 92; TEMP 98
--- NOTE | 2021-07-16 07:00 | NUR ---
CHANGE OF SHIFT REPORT GIVEN TO DAY SHIFT RNLINO.
--- NOTE | 2021-07-16 08:00 | NUR ---
Patient sitting up in bed, A&Ox4. VSS. Denies pain and discomfort. Brace on left leg and elevated on pillow. Independent with feeds and repositioning in bed. Call light within reach. Bed alarm on
--- NOTE | 2021-07-16 12:37 | NUR ---
Php Architect contacted [facility] and faxed order for wheelchair and walker. Alessandro at [facility] advised that based on patient's current notes, Medicaid will only cover walker as the notes reflect that patient only requires wheelchair for community distances. KRUNAL collaborated with SALLY Mckinley who will speak with the therapy team to see if this is going to be the recommendation or if they feel patient requires wheelchair at home.
[2021-07-16 17:15] VITALS: BP 137/62; PULSE 76; TEMP 98.2
--- NOTE | 2021-07-16 17:20 | NUR ---
Patient sitting up in bed eating dinner with at the bedside. A&Ox4. VSS. Denies pain and discomfort. MOD I in the room. Brace on left leg. Call light within reach
--- NOTE | 2021-07-16 19:00 | NUR ---
RECEIVED CHANGE OF SHIFT REPORT FROM DAY SHIFT RN. PATIENT RESTING IN BED WITH S.O. AT BEDSIDE. PATIENT UP IN ROOM AD NED WITH NO REPORTED C/O OR NEEDS AT TIME OF REPORT.
[2021-07-17 05:30] VITALS: BP 138/56; PULSE 74; TEMP 98
--- NOTE | 2021-07-17 07:08 | NUR ---
CHANGE OF SHIFT REPORT GIVEN TO DAY SHIFT MIR ROLAND.
--- NOTE | 2021-07-17 09:12 | NUR ---
PT SITTING UP IN BED. MORNING MEDICATIONS GIVEN. SHIFT ASSESSMENT COMPLETED. PT DENIES ANY PAIN OR NEEDS AT THIS TIME. L STUMP IN LEG BRACE, PT REPORTS SHES SEEN NO DRAINAGE FROM SITE THIS MORNING. PT EAGER TO D/C. WILL CONTINUE TO MONITOR.
[2021-07-17] MEDS ORDERED: ASPI325T6 PO (09:22)
[2021-07-17] MEDS ORDERED: NEURONTIN100 MG/CAP PO (09:23)
[2021-07-17] MEDS ORDERED: LEVEMIR FLEX100 U/ML SQ (09:28)
[2021-07-17] MEDS ORDERED: ULTRAM 50MG TAB50 MG PO (09:29)
--- NOTE | 2021-07-17 11:11 | NUR ---
DISCHARGE INSTRUCTIONS GIVEN, AT BEDSIDE, ALL QUESTIONS ANSWERED. WILL ESCORT PT DOWN WITH BELONGINGS. WILL D/C FROM SYSTEM.
--- NOTE | 2021-07-17 16:09 | NUR ---
Senior Corporate Strategy Manager faxed updated OT note to Alessandro at [facility] and was advised patient's wheelchair is covered. Alessandro advised that patient was set up with a walker on 06/29/21 according to their records. KRUNAL contacted patient by phone as she had discharged this morning. Patient plans to sampler pickup wheelchair from [facility] on the way home. Patient states she also forgot she got set up with the walker during her last admission but confirmed she has it at home. KRUNAL scheduled patient's first PT/OT appointments then faxed referral information and orders to [facility]. KRUNAL contacted [facility] and faxed discharge orders. Discharge Plan: Home with Nursing and Outpatient PT/OT
== END 2021-07-17 11:15 | disposition home health service (06) | DRG 561 ==
PROVIDERS: ADMIT Physical Medicine & Rehabilitation Sports Medicine
DX: Z47.81 Encounter for orthopedic aftercare following surgical amputation (principal); R53.81 Other malaise; R26.89 Other abnormalities of gait and mobility; G54.6 Phantom limb syndrome with pain; E11.649 Type 2 diabetes mellitus with hypoglycemia without coma; D75.839 Thrombocytosis, unspecified; D64.89 Other specified anemias; E87.6 Hypokalemia; J44.9 Chronic obstructive pulmonary disease, unspecified; K21.9 Gastro-esophageal reflux disease without esophagitis; E87.5 Hyperkalemia; I10 Essential (primary) hypertension; Z89.512 Acquired absence of left leg below knee; Z79.82 Long term (current) use of aspirin; Z79.899 Other long term (current) drug therapy; Z79.891 Long term (current) use of opiate analgesic; Z73.6 Limitation of activities due to disability; Z79.4 Long term (current) use of insulin; W18.39XA Other fall on same level, initial encounter; Y92.230 Patient room in hospital as the place of occurrence of the external cause; R19.7 Diarrhea, unspecified
CPT/HCPCS: 99221; 99231-AI; 99232-AI; J1650; J1815

== ENCOUNTER 2021-08-19 08:15 | Outpatient (RCR) | payer MEDICAID ==
[~2021-08-19 08:15] MED LIST changes: +NEURONTIN100 MG/CAP PO; +ULTRAM 50MG TAB50 MG PO
== END 2021-08-20 | disposition home or self-care (01) ==
LOC: MKS.ESL.PT
DX: Z89.512 Acquired absence of left leg below knee (principal)

== ENCOUNTER → 2021-09-02 | Outpatient (CLI) | payer MEDICAID | LOC: DIA.ED 08:21 | DX: E11.65 Type 2 diabetes mellitus with hyperglycemia (principal); E11.40 Type 2 diabetes mellitus with diabetic neuropathy, unspecified; Z79.4 Long term (current) use of insulin; I10 Essential (primary) hypertension; E78.5 Hyperlipidemia, unspecified | CPT/HCPCS: G0108 ==

== ENCOUNTER 2021-09-10 08:30 | Outpatient (RCR) | payer MEDICAID | END 2021-09-20 | disposition home or self-care (01) | LOC: MKS.ESL.PT | DX: Z89.512 Acquired absence of left leg below knee (principal) ==

== ENCOUNTER 2021-09-24 08:45 | Outpatient (RCR) | payer MEDICAID | END 2021-10-21 | disposition home or self-care (01) | LOC: MKS.ESL.PT | DX: Z89.612 Acquired absence of left leg above knee (principal) ==

== ENCOUNTER 2021-11-10 16:53 | Emergency (ER) | payer MEDICAID ==
[~2021-11-10] VITALS: Ht 160 cm; Wt 59.1 kg
[2021-11-10 17:00] VITALS: TEMP 98.5
[2021-11-10 18:16] LABS: BASO # 0.1 K/mm3 (0.0-0.2); BASO % 0.8 % (0.0-2.0); EOS # 0.5 K/mm3 (0.0-0.7); EOS % 6.9 % (0.0-4.0); GRAN % 51.2 % (42.2-75.2); HEMOGLOBIN 10.3 g/dl (12.5-16.0); LYMPH # 2.6 K/mm3 (1.2-3.4); LYMPH % 32.8 % (20.0-51.0); MEAN CELL VOLUME 84 fl (80.0-100.0); MEAN CORPUSCULAR HEMOGLOBIN 28 pg (27-31); MEAN CORPUSCULAR HGB CONC 33 g/dl (33.0-37.0); MEAN PLATELET VOLUME 10.3 fl (7.4-10.4); MONO # 0.6 K/mm3 (0.1-0.6); PLATELET COUNT 285 K/mm3 (130-400); RED BLOOD COUNT 3.74 M/mm3 (4.10-5.30); REDCELL DISTRIBUTION WIDTH-CV 13.7 % (11.5-14.5)
[2021-11-10 18:18] LABS: HEMATOCRIT 31.3 % (37.0-47.0)
[2021-11-10 18:33] LABS: ALBUMIN 3.7 gm/dL (3.4-4.8); BILIRUBIN,TOTAL 0.4 mg/dL (0.2-1.2); CALCIUM 9.6 mg/dL (8.4-10.2); CREATININE, serum 0.82 mg/dL (0.57-1.11); POTASSIUM 3.8 mmol/L (3.5-4.5); TOTAL PROTEIN 7.5 gm/dL (6.2-8.1)
[2021-11-10 18:39] LABS: TROPONIN-I 0.017 ng/mL (0.00-0.033)
[2021-11-10 21:05] VITALS: BP 154/57; PULSE 81
== END 2021-11-10 21:07 | disposition home or self-care (01) ==
LOC: COL.ER 16:53
PROVIDERS: Personal Emergency Response Attendant
DX: I10 Essential (primary) hypertension (principal); Z79.899 Other long term (current) drug therapy
CPT/HCPCS: J0360; J2405; J7050

== ENCOUNTER 2021-12-01 08:45 | Outpatient (RCR) | payer MEDICAID | END 2021-12-21 | disposition home or self-care (01) | LOC: MKS.ESL.PT | DX: Z89.512 Acquired absence of left leg below knee (principal) ==

== ENCOUNTER 2022-03-29 02:19 | Inpatient (IN) | payer MEDICAID ==
[~2022-03-29] VITALS: Ht 160 cm; Wt 58.6 kg
[2022-03-29] VITALS (849 sets, daily range): BP systolic 132–151; BP diastolic 56–77; PULSE 88–105; TEMP 98–101.7; O2SAT 87–100
[2022-03-29 02:55] LABS: BASO # 0.1 K/mm3 (0.0-0.2); BASO % 0.6 % (0.0-2.0); EOS # 0.1 K/mm3 (0.0-0.7); EOS % 0.4 % (0.0-4.0); GRAN # 10.5 K/mm3 (1.4-6.5); GRAN % 85.2 % (42.2-75.2); HEMOGLOBIN 10.6 g/dl (12.5-16.0); LYMPH # 0.9 K/mm3 (1.2-3.4); LYMPH % 7.2 % (20.0-51.0); MEAN CELL VOLUME 84 fl (80.0-100.0); MEAN CORPUSCULAR HEMOGLOBIN 27 pg (27-31); MEAN CORPUSCULAR HGB CONC 32 g/dl (33.0-37.0); MEAN PLATELET VOLUME 9.9 fl (7.4-10.4); MONO # 0.7 K/mm3 (0.1-0.6); PLATELET COUNT 340 K/mm3 (130-400); REDCELL DISTRIBUTION WIDTH-CV 13.6 % (11.5-14.5)
[2022-03-29 03:01] LABS: COLLECTION METHOD CLEAN CATCH
[2022-03-29 03:09] LABS: ACETONE,SERUM SMALL
[2022-03-29 03:09] LABS: HEMATOCRIT 32.7 % (37.0-47.0)
[2022-03-29 03:15] LABS: ALANINE AMINOTRANSFERASE 15 U/L (0-55); ALBUMIN 3.5 gm/dL (3.4-4.8); ALKALINE PHOSPHATASE 94 U/L (40-150); ANION GAP 21 mmol/L (7-16); AST,SGOT 12 U/L (5-34); BILIRUBIN,TOTAL 0.5 mg/dL (0.2-1.2); BLOOD UREA NITROGEN 20 mg/dL (10-20); CALCIUM 9.5 mg/dL (8.4-10.2); CHLORIDE 109 mmol/L (98-107); CREATININE, serum 1.07 mg/dL (0.57-1.11); GLUCOSE 240 mg/dL (70-99); POTASSIUM 4.1 mmol/L (3.5-4.5); SODIUM 142 mmol/L (136-145)
[2022-03-29 03:16] LABS: SQUAMOUS EPITHELIAL None Seen /hpf (0-10); URINE APPEARANCE Clear (CLEAR/HAZY); URINE BACTERIA None Seen /hpf (NONE SEEN); URINE BLOOD TRACE-LYSED (NEGATIVE); URINE COLOR Yellow (YELLOW); URINE GLUCOSE 2+ (NEGATIVE); URINE KETONE 2+ (NEGATIVE); URINE NITRATE Negative (NEGATIVE); URINE PROTEIN(semi-quant) 1+ (NEGATIVE); URINE RBC 0-2 /hpf (0-2); URINE UROBILINOGEN 0.2 E.U/dL (0.2-1.0)
[2022-03-29 03:27] LABS: CARBON DIOXIDE 12 mmol/L (23-31)
[2022-03-29 07:33] LABS: CREATININE, serum 0.9 mg/dL (0.57-1.11); POTASSIUM 3.6 mmol/L (3.5-4.5)
[2022-03-29 11:36] LABS: CALCIUM 9.3 mg/dL (8.4-10.2); CREATININE, serum 0.89 mg/dL (0.57-1.11); POTASSIUM 3.6 mmol/L (3.5-4.5)
--- NOTE | 2022-03-29 14:06 | NUR ---
SW met with patient to complete intake. Patient reports that she lives at home with her life partner Shannon ([phone]) in [place]. 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 She denies having any home oxygen but is currently on 1L. PCP is Ladi Terrazas at [facility] and she utilizes [facility] for prescriptions. Patient does have a [employer]-HC established listing her daughter Shruthi ([phone]) as her primary agent and Shannon as her secondary agent.
[2022-03-29 15:43] LABS: CALCIUM 8.7 mg/dL (8.4-10.2); CREATININE, serum 0.88 mg/dL (0.57-1.11); POTASSIUM 3.6 mmol/L (3.5-4.5)
--- NOTE | 2022-03-29 18:18 | NUR ---
PT ADMITTED FROM ED AT 0740. VSS UPON ARRIVAL, PT ON ROOM AIR. PT ABLE TO MOVE FROM ED STRETCHER TO ICU BED W/ MINIMAL ASSISTANCE. PT HAS 2 IV SITES, 20G TO L HAND AND 20G TO L AC. FLUIDS AND INSULIN INFUSING ORDERED, SEE EMAR/TITRATION FLOW SHEET. PT IS NAUSEOUS AND DRY HEAVING. ONE TIME DOSE OF COMPAZINE GIVEN. PT IS ALERT AND ORIENTED AND ABLE TO ANSWER ALL INTAKE QUESTIONS. DONNELLY CATHETER PLACED AT 0900. PT PLACED ON OXYGEN AT 1L PER NC TO KEEP SATS ABOVE 90%. PT'S NAUSEA HAS IMPROVED THROUGHOUT THE DAY, PT ABLE TO EAT SMALL AMOUNTS OF FOOD, DRINK WATER, TAKE PO MEDS. PT GIVEN ONE DOSE OF TYLENOL FOR FEVER AT 1200, PT HAS BEEN AFEBRILE SINCE THAT TIME. INSULIN DRIP DISCONTINUED AT 1430, SQ INSULIN GIVEN, FLUIDS CHANGED TO NS, PER ORDERS FROM DR. BROWN. PT IS RESTING IN BED AT TIME OF THIS NOTE. SIGNIFICANT OTHER AT BEDSIDE, CALL LIGHT IN REACH.
--- NOTE | 2022-03-29 19:00 | NUR ---
PT RESTING IN BED WATCHING TV. NS RUNNING. PTS VSS. PT HAS CALL LIGHT AND INSTRUCTED TO CALL WITH ALL NEEDS.
[2022-03-29 19:33] LABS: CALCIUM 9.1 mg/dL (8.4-10.2); CREATININE, serum 0.84 mg/dL (0.57-1.11); POTASSIUM 3.7 mmol/L (3.5-4.5)
--- NOTE | 2022-03-29 23:53 | NUR ---
BRIJESH MOSLEY CALLED AND ORDERS CLARIFIED REGARDING ABG. WILL NOT DO ONE TONIGHT BUT WILL DO ONE IN AM.
[2022-03-30] VITALS (1397 sets, daily range): BP systolic 128–150; BP diastolic 49–77; PULSE 76–92; TEMP 98–99.4; O2SAT 83–100
--- NOTE | 2022-03-30 05:39 | NUR ---
0500 ABG WAS ORDERED BUT UNABLE TO OBTAIN, VENOUS BLOOD WAS PRESENT AND RAN AND SUBMITTED INSTEAD.
[2022-03-30 09:52] LABS: CALCIUM 8.8 mg/dL (8.4-10.2); CREATININE, serum 0.75 mg/dL (0.57-1.11); POTASSIUM 3.7 mmol/L (3.5-4.5)
--- NOTE | 2022-03-30 12:23 | NUR ---
BEDSIDE REPORT RECEIVED FROM ASUNCION ONEILL. PT RESTING IN BED AT THIS TIME. VSS, PT ON 3L/NC TO KEEP O2 SAT ABOVE 90. NS INFUSING AT 100ML/HR TO PERIPHERAL IV IN L AC. DONNELLY CATHETER IN PLACE TO DEPENDENT DRAINAGE. PT DENIES NEEDS, CALL LIGHT IN REACH.
[2022-03-30 18:41] LABS: CALCIUM 8.5 mg/dL (8.4-10.2); CREATININE, serum 0.73 mg/dL (0.57-1.11); POTASSIUM 3.1 mmol/L (3.5-4.5)
--- NOTE | 2022-03-30 19:00 | NUR ---
PT RESTING IN BED. VSS. PT ON IVF AND INSULIN DRIP. PT HAS CALL LIGHT WITHIN REACH AND INSTURCTED TO CALL WTIH ALL NEEDS.
--- NOTE | 2022-03-30 21:09 | NUR ---
PTS BG DOWN TO 65. INSULIN DRIP STOPPED. IVF STILL RUNNING. PT IS ASYMPTAMATIC. BG RECHECKED UP TO 73. IVF STILL RUNNING. PT IS ASYPTAMATIC. BG RECHECKED AND UP TO 99. BRIJESH MOSLEY NOTIFIED OF ABOVE. STATES SHE WILL DC INSULIN DRIP AND CHANGE IVF.
[2022-03-31] VITALS (1306 sets, daily range): BP systolic 77–155; BP diastolic 59–67; PULSE 66–124; TEMP 97.4–99; O2SAT 83–100
--- NOTE | 2022-03-31 08:17 | NUR ---
BEDSIDE REPORT RECEIVED FROM ASUNCION ONEILL. PT RESTING IN BED. PT ON 2L O2/NC, VSS. NS INFUSING ORDERED. DONNELLY CATHETER IN PLACE TO DEPENDENT DRAINAGE. PT DENIES NEEDS AT THIS TIME, CALL LIGHT IN REACH.
[2022-03-31 09:00] LABS: BASO # 0.1 K/mm3 (0.0-0.2); BASO % 0.5 % (0.0-2.0); EOS % 0.3 % (0.0-4.0); GRAN # 7.5 K/mm3 (1.4-6.5); GRAN % 67.7 % (42.2-75.2); LYMPH # 2.1 K/mm3 (1.2-3.4); LYMPH % 19.2 % (20.0-51.0); MEAN CELL VOLUME 81 fl (80.0-100.0); MEAN CORPUSCULAR HGB CONC 33 g/dl (33.0-37.0); MEAN PLATELET VOLUME 9.6 fl (7.4-10.4); MONO # 1.3 K/mm3 (0.1-0.6); MONO % 11.5 % (1.7-9.3); PLATELET COUNT 288 K/mm3 (130-400); RED BLOOD COUNT 3.68 M/mm3 (4.10-5.30); REDCELL DISTRIBUTION WIDTH-CV 13.5 % (11.5-14.5)
[2022-03-31 09:05] LABS: HEMATOCRIT 29.9 % (37.0-47.0); HEMOGLOBIN 9.9 g/dl (12.5-16.0); MEAN CORPUSCULAR HEMOGLOBIN 27 pg (27-31)
[2022-03-31 09:14] LABS: CALCIUM 8.7 mg/dL (8.4-10.2); CREATININE, serum 0.7 mg/dL (0.57-1.11); POTASSIUM 3.6 mmol/L (3.5-4.5)
[2022-03-31 10:24] LABS: PARTIAL THROMBOPLASTIN TIME 31.4 SECONDS (26.0-37.0)
[2022-03-31 13:05] LABS: MAGNESIUM 1.7 mg/dL (1.6-2.6)
[2022-03-31 13:25] LABS: TSH w REFLEX 0.945 uIU/mL (0.350-4.940)
--- NOTE | 2022-03-31 20:00 | NUR ---
PT ASSESSMENT COMPLETED. VSS. PT IS ALERT AND ORIENTED. ABLE TO ANSWER QUESTIONS APPROPRIATELY. MEDICATIONS RUNNING PER DRIP TITRATION FLOWSHEET. PT CALL LIGHT WITHIN REACH
[2022-04-01] VITALS (688 sets, daily range): BP systolic 132–148; BP diastolic 53–83; PULSE 72–85; TEMP 97.4–99; O2SAT 87–100
[2022-04-01 05:35] LABS: BASO % 0.2 % (0.0-2.0); EOS # 0.1 K/mm3 (0.0-0.7); EOS % 0.5 % (0.0-4.0); GRAN % 66.2 % (42.2-75.2); LYMPH # 2.7 K/mm3 (1.2-3.4); LYMPH % 22.8 % (20.0-51.0); MEAN CELL VOLUME 84 fl (80.0-100.0); MEAN CORPUSCULAR HGB CONC 32 g/dl (33.0-37.0); MONO # 1.2 K/mm3 (0.1-0.6); MONO % 9.6 % (1.7-9.3); PLATELET COUNT 302 K/mm3 (130-400); RED BLOOD COUNT 3.12 M/mm3 (4.10-5.30); REDCELL DISTRIBUTION WIDTH-CV 13.8 % (11.5-14.5)
[2022-04-01 05:38] LABS: HEMATOCRIT 26.1 % (37.0-47.0); HEMOGLOBIN 8.4 g/dl (12.5-16.0); MEAN CORPUSCULAR HEMOGLOBIN 27 pg (27-31)
[2022-04-01 05:53] LABS: CALCIUM 7.9 mg/dL (8.4-10.2); CREATININE, serum 0.65 mg/dL (0.57-1.11); POTASSIUM 3.3 mmol/L (3.5-4.5)
--- NOTE | 2022-04-01 07:55 | NUR ---
HEP GTT AT GOAL
--- NOTE | 2022-04-01 15:20 | NUR ---
Report rec'd from ASUNCION Munguia.
--- NOTE | 2022-04-01 16:25 | NUR ---
Pt rec'd to room 352 with dx of Influenza A, pneumonia, UTI, Afib with RVR, DKA. Assessment complete. Pt A/O x4. On RA. Tele SR. INT to LFA. PICC to KATHERINE. Jorge WISE with red tinged drainage. Droplet/contact precautions in place.
--- NOTE | 2022-04-01 16:25 | NUR ---
Pt rec'd to room 352 with dx of Influenza A, pneumonia, UTI, Afib with RVR, DKA. Assessment complete. Pt A/O x4. On RA. Tele SR. INT to LFA. PICC to KATHERINE. Droplet/contact precautions in place.
--- NOTE | 2022-04-01 18:25 | NUR ---
Assisted patient standby assist to the bathroom. Pt voided clear yellow urine.
[2022-04-02 04:03] VITALS: BP 142/75; PULSE 77; TEMP 97.6
--- NOTE | 2022-04-02 04:45 | NUR ---
ASSESSMENT COMPLETE FOR REPAIRER SASH AND DOOR. PT DENIED ALL PAIN, PALPITATIONS, SOB, N,V,D OR DIZZINESS. PT HAD A PRETTY UNEVENTFUL NIGHT. PT EXPRESSED NO ADDITIONAL NEEDS AT THIS TIME. FALL PRECAUTIONS IN PLACE. BED ALARM ON. CALL LIGHT WITHIN REACH.
[2022-04-02 07:38] VITALS: BP 154/93; PULSE 79; TEMP 98
[2022-04-02] MEDS ORDERED: ELIQUIS 5MG PO (08:29)
[2022-04-02] MEDS ORDERED: OMNICEF 300MG300 MG PO (08:30)
[2022-04-02] MEDS ORDERED: TAMIFLU30 MG PO (08:30)
[2022-04-02] MEDS ORDERED: DOXYCYCLINE 10100 MG PO (08:31)
[2022-04-02] MEDS ORDERED: CORDARONE200 MG/TAB PO (08:34)
[2022-04-02 10:04] LABS: MEAN CELL VOLUME 82 fl (80.0-100.0); MEAN CORPUSCULAR HGB CONC 32 g/dl (33.0-37.0); MEAN PLATELET VOLUME 9.5 fl (7.4-10.4); PLATELET COUNT 301 K/mm3 (130-400); RED BLOOD COUNT 3.44 M/mm3 (4.10-5.30); REDCELL DISTRIBUTION WIDTH-CV 13.6 % (11.5-14.5)
[2022-04-02 10:07] LABS: HEMATOCRIT 28.2 % (37.0-47.0); HEMOGLOBIN 9.1 g/dl (12.5-16.0); MEAN CORPUSCULAR HEMOGLOBIN 26 pg (27-31)
[2022-04-02 10:18] LABS: CALCIUM 8.7 mg/dL (8.4-10.2); CREATININE, serum 0.66 mg/dL (0.57-1.11); POTASSIUM 3.4 mmol/L (3.5-4.5)
[2022-04-02 10:38] LABS: EOSINOPHIL 2 % (0-4); HYPOCHROMIA 1+; LYMPHOCYTE 25 % (20.0-51.0); NEUTROPHILS 65 % (42.0-75.2); PLATELET ESTIMATE NORMAL (NORMAL)
== END 2022-04-02 12:17 | disposition home or self-care (01) | DRG 637 ==
LOC: COL.ER 02:19 → ICU 04:02 → MEDICAL 04-01 16:20
PROVIDERS: Emergency Medicine; Nurse Practitioner; Physician Assistant; Student in an Organized Health Care Education/Training Program; ADMIT Internal Medicine
PROC: 02HV33Z Insertion of Infusion Device into Superior Vena Cava, Percutaneous Approach (ICD-10-PCS; principal; 2022-03-31)
DX: E11.10 Type 2 diabetes mellitus with ketoacidosis without coma (principal); J96.01 Acute respiratory failure with hypoxia; J90 Pleural effusion, not elsewhere classified; J10.1 Influenza due to other identified influenza virus with other respiratory manifestations; J44.9 Chronic obstructive pulmonary disease, unspecified; E78.5 Hyperlipidemia, unspecified; K21.9 Gastro-esophageal reflux disease without esophagitis; I10 Essential (primary) hypertension; Z20.822 Contact with and (suspected) exposure to COVID-19; I48.91 Unspecified atrial fibrillation; I95.9 Hypotension, unspecified; Z79.82 Long term (current) use of aspirin; Z79.4 Long term (current) use of insulin; Z89.512 Acquired absence of left leg below knee; Z89.412 Acquired absence of left great toe; Z91.048 Other nonmedicinal substance allergy status; Z23 Encounter for immunization
CPT/HCPCS: A4314; C1751; C9113; J0282; J0696; J0780; J1644; J1650; J1815; J1940; J2405; J3475; J3480; J7030; J7060

== ENCOUNTER 2022-07-20 21:08 | Emergency (ER) | payer MEDICAID ==
[~2022-07-20] VITALS: Ht 160 cm; Wt 56.4 kg
[~2022-07-20 21:08] MED LIST changes: +CORDARONE200 MG/TAB PO; +DOXYCYCLINE 10100 MG PO; +ELIQUIS 5MG PO; +OMNICEF 300MG300 MG PO; +TAMIFLU30 MG PO
[2022-07-20 21:17] VITALS: BP 174/64; TEMP 97.7
[2022-07-20 22:02] VITALS: PULSE 86
== END 2022-07-20 22:07 | disposition home or self-care (01) ==
LOC: COL.ER 21:08
DX: M79.605 Pain in left leg (principal); Z89.512 Acquired absence of left leg below knee; W01.0XXA Fall on same level from slipping, tripping and stumbling without subsequent striking against object, initial encounter; X50.1XXA Overexertion from prolonged static or awkward postures, initial encounter

== ENCOUNTER 2023-02-07 15:50 | Outpatient (RCR) | payer MEDICAID ==
[~2023-02-07 15:50] MED LIST changes: +CEPHALEXIN500 M1 PO
== END 2023-02-20 | disposition home or self-care (01) ==
LOC: COL.CR
DX: I73.9 Peripheral vascular disease, unspecified (principal)

== ENCOUNTER 2023-05-18 11:25 | Emergency (ER) | payer MEDICAID ==
[~2023-05-18] VITALS: Ht 160 cm; Wt 59.1 kg
[2023-05-18 11:36] VITALS: TEMP 98
[2023-05-18 14:25] LABS: BASO # 0.1 K/mm3 (0.0-0.2); BASO % 0.4 % (0.0-2.0); EOS # 0.7 K/mm3 (0.0-0.7); EOS % 6.1 % (0.0-4.0); GRAN # 6.6 K/mm3 (1.4-6.5); HEMOGLOBIN 10.7 g/dl (12.5-16.0); LYMPH # 3.1 K/mm3 (1.2-3.4); LYMPH % 27.5 % (20.0-51.0); MEAN CELL VOLUME 83 fl (80.0-100.0); MEAN CORPUSCULAR HEMOGLOBIN 27 pg (27-31); MEAN CORPUSCULAR HGB CONC 32 g/dl (33.0-37.0); MEAN PLATELET VOLUME 10.6 fl (7.4-10.4); MONO # 0.8 K/mm3 (0.1-0.6); MONO % 6.8 % (1.7-9.3); PLATELET COUNT 321 K/mm3 (130-400); RED BLOOD COUNT 4.01 M/mm3 (4.10-5.30); REDCELL DISTRIBUTION WIDTH-CV 13.9 % (11.5-14.5)
[2023-05-18 14:26] LABS: HEMATOCRIT 33.3 % (37.0-47.0)
[2023-05-18 14:33] LABS: ERYTHROCYTE SEDIMENTATION RATE 35 mm/hr (0-30)
[2023-05-18 14:47] LABS: ALBUMIN 3.6 g/dL (3.4-4.8); BILIRUBIN,TOTAL 0.5 mg/dL (0.2-1.2); C-REACTIVE PROTEIN 0.48 mg/dL (0.00-0.50); CALCIUM 9.7 mg/dL (8.4-10.2); CREATININE, serum 1.63 mg/dL (0.57-1.11); POTASSIUM 4.4 mEq/L (3.5-4.5); TOTAL PROTEIN 7.5 g/dl (6.2-8.1)
[2023-05-18] MEDS ORDERED: Cephalexin 500 MG CAP PO ONE (16:00)
[2023-05-18] MEDS ORDERED: Doxycycline Monohydrate 100 MG CAP PO ONE (16:00)
[2023-05-18] MEDS ORDERED: CEPHALEXIN500 M1 PO (16:01)
[2023-05-18] MEDS ORDERED: DOXYCYCLINE 10100 MG PO (16:01)
[2023-05-18 16:15] VITALS: BP 106/87; PULSE 78
== END 2023-05-18 16:15 | disposition home or self-care (01) ==
LOC: COL.ER 11:25
PROVIDERS: Emergency Medicine
DX: E11.621 Type 2 diabetes mellitus with foot ulcer (principal); L97.419 Non-pressure chronic ulcer of right heel and midfoot with unspecified severity; E11.51 Type 2 diabetes mellitus with diabetic peripheral angiopathy without gangrene

== ENCOUNTER → 2023-09-20 | Outpatient (CLI) | payer MEDICAID | LOC: COL.RAD 10:52 | DX: M47.812 Spondylosis without myelopathy or radiculopathy, cervical region (principal) ==